=== PATIENT | female | born 1975 | race Two or more races ===

== ENCOUNTER 2024-02-29 07:48 | Outpatient (AMB) | payer BC, SELFPAY ==
[2024-02-29 08:04] VITALS: BP 121/74; PULSE 64; RESP 16; TEMP 36.3; O2SAT 96; BMI 24.7
--- NOTE | 2024-02-29 08:04 | PD.ORTHCLVIS ---
Vital signs 02/29/24 08:04 Height 1.68 m Height Method Stated Weight 70.023 kg Weight Measurement Method Standing Scale BMI 24.7 BP 121/74 Blood Pressure Source Automatic Cuff Blood Pressure Location Right Upper Arm Position Sitting Respiration 16 Pulse 64 Pulse Source Monitor Temp 97.3 F Temp Source Temporal Artery Scan Pulse Oximetry (%) 96 Oxygen Delivery Method Room Air Med/Allergies Allergies & Medications Allergies Penicillins Allergy (Severe, Verified 02/29/24 08:06) Hives Medication Reconciliation diclofenac potassium 50 mg tablet 50 mg PO QDAY 02/29/24 [History Confirmed 02/29/24] paroxetine HCl 30 mg tablet 30 mg PO QDAY 02/29/24 [History Confirmed 02/29/24] propranolol 20 mg tablet 20 mg PO BID 02/29/24 [History Confirmed 02/29/24] Subjective Visit Visit for: new patient and knee Immunization / Flu Flu Vaccine in the Last 12 Months: No Flu Vaccine Exclusion Criteria: Refused by Patient History of Present Illness Chief complaint: KNEE PAIN Date of injury / onset of symptoms: 2020 Personal History Occupation: RETIRED Red flag PMH: none Pain Pain level (0-10): 5 Pain duration: COMES AND GOES Pain location: inside (medial), outside (lateral), anterior and posterior Pain quality: other (specify) (INFLAMMATION ) Pain timing: increases with activity Associated signs & symptoms: weakness and stiffness Ambulatory data Ambulatory device: none Treatments Improvement with previous injections: No Improvement with PT: No Improvement with NSAIDS: n/a Review of Systems Review of Systems: All systems negative unless otherwise noted in HPI. Office Procedures GNS Level of Care Nursing/Assessment Patient Status: Established Patient Nursing Assessment/Reassesment: Medication Reconciliation, Update PMH in EMR and Vital Signs Coordination of Care: Complex Care and Chronic Disease 1-5, Education Complex Pt/Fam, Consent,records obtained, informed consent, Results/Orders obtained and Staff clarify orders Established Patient Charge Established Patient Point Assignment: 95 Established Patient Point Charge: EP Level 3 (80-115) Past Medical History Past Medical History Have you ever been diagnosed with any of the following: Neurological Problems Seizures: No Cardiology Problems Congestive Heart Failure: No Edema: No Cellulitis: No Varicose Veins: No Respiratory Problems Chronic Obstructive Pulmonary Disease (COPD): No Tuberculosis: No Pulmonary Embolism: No Sleep Apnea: No Smoking: No Smoking Exposure: No Stomache/Intestinal Problems Hepatitis: No Genital/Urinary Problems Renal Disease: No Reproductive Problems Previous Pregnancies: Yes (X3) Endocrine Problems Diabetes Mellitus Type 1: No Diabetes Mellitus Type 2: No Blood Problems Anemia: Yes (NO MED) Other Problems Hospitalization: No Shingles: No Falls: No Blood Transfusions: No Blood Transfusion Reaction: No Anesthesia Reactions: No Chemotherapy: No Radiation Therapy: No MRSA: No Chicken Pox: Yes Measles: No Mumps: No Cancer: No Surgical History Pacemaker: No
--- NOTE | 2024-04-17 14:07 | ORTHONT_ITS ---
Patient Name: DARIEL QUIÑONES : 1975 Subjective Subjective Brief History: left knee pain Narrative: Patient is a 48-year-old female with left knee pain and left knee arthritis. She has known osteoarthritis for 3 years. She just retired recently. The pain is bothering her and she just wants to get back to being more active. She is only tried diclofenac. She is not had any injections or formal physical therapy Exam Additional findings Additional findings: Patient is in no acute distress and is cooperative with the examination today. Breathing is nonlabored. Patient has a normal mood and affect. Bilateral extremities were evaluated and demonstrates sensation intact to light touch. Palpable pedal pulses are present. No significant edema is present. Bilateral hips were examined. The patient has no pain with log roll of the hips. Internal rotation to 30 degrees and external rotation to 30 degrees is painless. Negative FADIR. Right knee was examined today. The right knee is in reasonable alignment. Range of motion from 0-120 degrees. Knee is stable to varus and valgus as well as AP translation with <5mm. Patient has a negative McMurrays. There is no pain with patellofemoral compression and no crepitus noted. The knee is nontender to palpation. Left knee was examined today. The left knee is in [varus] alignment. Range of motion from [0-115] degrees. Knee is stable to varus and valgus as well as AP translation with <5mm. Patient has a [negative] McMurrays. There is [no] pain with patellofemoral compression and [no] crepitus noted. The knee is [tender] to palpation [medially]. Assessment & Plan Diagnosis (1) Arthritis of left knee: Status: Acute Assessment Additional comments: Patient is a 48-year-old female with left knee pain and left knee arthritis. The pain has been ongoing for at least 4 years. She Has recently retired. She has not had any injections. She reports diclofenac still works somewhat. We discussed a home exercise program to start with. We can try injections if the pain gets worse. I would like to get a tunnel view right now [facility]
== END 2024-02-29 08:39 | disposition home or self-care (01) ==
LOC: HODSRG 07:48
PROVIDERS: PCP Internal Medicine; Referring Provider Internal Medicine; Supervising Provider Orthopaedic Surgery Adult Reconstructive Orthopaedic Surgery; Visit Provider Orthopaedic Surgery Adult Reconstructive Orthopaedic Surgery
DX: M17.12 Unilateral primary osteoarthritis, left knee (principal); M25.562 Pain in left knee
CPT/HCPCS: 99213; G0463

== ENCOUNTER 2024-03-14 09:53 | Outpatient (AMB) | payer BC, SELFPAY ==
--- NOTE | 2024-03-14 10:38 | PD.ORTHCLVIS ---
Vital signs 03/14/24 10:45 Height 1.68 m Height Method Stated Weight 70.76 kg Weight Measurement Method Standing Scale BMI 25.0 BP 131/80 H Blood Pressure Source Automatic Cuff Blood Pressure Location Right Upper Arm Position Sitting Respiration 18 Pulse 68 Pulse Source Monitor Temp 98.2 F Temp Source Temporal Artery Scan Pulse Oximetry (%) 100 Oxygen Delivery Method Room Air Med/Allergies Allergies & Medications Allergies Penicillins Allergy (Severe, Verified 03/14/24 10:46) Hives Medication Reconciliation diclofenac potassium 50 mg tablet 50 mg PO QDAY 02/29/24 [History Confirmed 03/14/24] paroxetine HCl 30 mg tablet 30 mg PO QDAY 02/29/24 [History Confirmed 03/14/24] propranolol 20 mg tablet 20 mg PO BID 02/29/24 [History Confirmed 03/14/24] Subjective Visit Visit for: follow up visit Immunization / Flu Flu Vaccine in the Last 12 Months: No Flu Vaccine Exclusion Criteria: No Exclusion Criteria History of Present Illness Chief complaint: FOLLOW UP Patient is a 48-year-old female who previously saw me approximately a month ago. She has had a left knee pain for over 3 years. She has tried oral diclofenac but has not had any injections or physical therapy. She has been wearing only an elastic sleeve. The pain is bothering her and she has not had much treatment Pain Pain level (0-10): 6 Pain duration: CONSTANT Pain quality: sharp, dull and aching Ambulatory data Ambulatory device: none Treatments Improvement with previous injections: No Improvement with PT: No Improvement with NSAIDS: n/a Review of Systems Review of Systems: All systems negative unless otherwise noted in HPI. Exam Exam Patient is in no acute distress and is cooperative with the examination today. Breathing is nonlabored. Patient has a normal mood and affect. Bilateral extremities were evaluated and demonstrates sensation intact to light touch. Palpable pedal pulses are present. No significant edema is present. Bilateral hips were examined. The patient has no pain with log roll of the hips. Internal rotation to 30 degrees and external rotation to 30 degrees is painless. Negative FADIR. Right knee was examined today. The right knee is in reasonable alignment. Range of motion from 0-120 degrees. Knee is stable to varus and valgus as well as AP translation with <5mm. Patient has a negative McMurrays. There is no pain with patellofemoral compression and no crepitus noted. The knee is nontender to palpation. Left knee was examined today. The left knee is in [varus] alignment. Range of motion from [0-115] degrees. Knee is stable to varus and valgus as well as AP translation with <5mm. Patient has a [negative] McMurrays. There is [no] pain with patellofemoral compression and [no] crepitus noted. The knee is [tender] to palpation [medially]. X-rays demonstrate moderate joint space narrowing. This is dated 02/29/2024. These are weightbearing films Assessment and Plan Problem List (1) Arthritis of left knee: Status: Acute Plan: Patient is a 48-year-old female with left knee pain and left knee arthritis. The knee arthritis is of moderate severity on x-ray. We discussed nonoperative Options including injections, anti-inflammatories, and physical therapy. She would like to try an injection as well as physical therapy. We also set her up with a brace today. Plan Recommend knee cortisone injection as patient would like to proceed with conservative treatment at this time. The risks and benefits of the procedure were reviewed with the patient and patient gave verbal consent to continue with the procedure. Procedure: performed by Dr. Joseph Using sterile technique the left knee was thoroughly prepped with alcohol, and approximately 1 cc of Kenalog 40 mg/mL and 4 cc of 1% lidocaine was injected without resistance into the medial tibial femoral joint space. The patient tolerated the procedure. We will see the patient back in 1 to 2 months after her physical therapy Office Procedures GNS Level of Care Nursing/Assessment Patient Status: Established Patient Nursing Assessment/Reassesment: Medication Reconciliation, Update PMH in EMR and Vital Signs Coordination of Care: Complex Care and Chronic Disease 1-5, Education Complex Pt/Fam, Consent,records obtained, informed consent, Results/Orders obtained and Staff clarify orders Established Patient Charge Established Patient Point Assignment: 95 Established Patient Point Charge: EP Level 3 (80-115) Surgical Proc/IM SQ injection Major Surgical Procedure: Yes (KNEE INJECTION) Medication Given Medication Given Medication Given: Yes Documented Dose Given: 4 Route: Infiitration Medication Given Medication Given Medication Given: Yes Documented Dose Given: 1 Route: Infiitration Office Meds Xylocaine 10 mg/mL (1 %) injection solution Performing Provider: Pavel Joseph MD Performing Location: [facility] Administered by: Pavel Joseph MD on 03/14/24 11:54 Dose Route Admin Location Dispensed Lot Number Expiration Date [place] [employer] 20 mL Infiltration 20 mL [id number] [employer] triamcinolone acetonide 40 mg/mL suspension for injection Performing Provider: Pavel Joseph MD Performing Location: [facility] Administered by: Pavel Joseph MD on 03/14/24 11:54 Dose Route Admin Location Dispensed Lot Number Expiration Date [place] [employer] 40 mg intra-articular 1 mL [id number] [employer] Past Medical History Past Medical History Have you ever been diagnosed with any of the following: Neurological Problems Seizures: No Cardiology Problems Congestive Heart Failure: No Edema: No Cellulitis: No Varicose Veins: No Respiratory Problems Chronic Obstructive Pulmonary Disease (COPD): No Tuberculosis: No Pulmonary Embolism: No Sleep Apnea: No Smoking: No Smoking Exposure: No Stomache/Intestinal Problems Hepatitis: No Genital/Urinary Problems Renal Disease: No Reproductive Problems Previous Pregnancies: Yes (X3) Endocrine Problems Diabetes Mellitus Type 1: No Diabetes Mellitus Type 2: No Blood Problems Anemia: Yes (NO MED) Other Problems Hospitalization: No Shingles: No Falls: No Blood Transfusions: No Blood Transfusion Reaction: No Anesthesia Reactions: No Chemotherapy: No Radiation Therapy: No MRSA: No Chicken Pox: Yes Measles: No Mumps: No Cancer: No Surgical History Pacemaker: No
[2024-03-14 10:45] VITALS: BP 131/80; PULSE 68; RESP 18; TEMP 36.8; O2SAT 100; BMI 25.0
== END 2024-03-14 11:27 | disposition home or self-care (01) ==
LOC: HODSRG 09:53
PROVIDERS: PCP Internal Medicine; Referring Provider Internal Medicine; Supervising Provider Orthopaedic Surgery Adult Reconstructive Orthopaedic Surgery; Visit Provider Orthopaedic Surgery Adult Reconstructive Orthopaedic Surgery
DX: M17.12 Unilateral primary osteoarthritis, left knee (principal); M25.562 Pain in left knee
CPT/HCPCS: 20610; 99213; J3301; J3490; G0463

== ENCOUNTER 2024-04-13 21:25 | Emergency (ER) | payer BC, SELFPAY ==
[2024-04-13 21:26] VITALS: BMI 25.8
[2024-04-13 21:46] VITALS: BP 149/87; PULSE 71; RESP 20; TEMP 36.7; O2SAT 98
--- NOTE | 2024-04-13 21:59 | XR_ITS ---
Examination: PA lateral chest 2 views Technique: Upright PA lateral chest 2 views Exam date 9: April 13, 2024 1018 hrs. Comparison April 19, 2022 Indications: Coughing today. Findings: Normal heart size Lungs are clear. The osseous structures are intact Impression: No active disease
--- NOTE | 2024-04-13 22:00 | EDNOTE_ITS ---
ED SOB =RME/HPI General Chief Complaint: Shortness of Breath/Dyspnea Stated Complaint: COUGH, CONGESTION X1 WEEK, FEELS LIKE SHE HAS PNA Time Seen by Provider: 04/13/24 21:50 Arrival date/time: 04/13/24 21:25 This is a 48-year-old female that comes in with complaints of cough, congestion, runny nose, and shortness of breath for the last week. Patient states that she thinks she has pneumonia. Patient has a history of depression anxiety. Related Data Home Medications ?Medication ?Instructions ?Recorded ?Confirmed diclofenac potassium 50 mg tablet 50 mg PO QDAY 02/29/24 03/14/24 paroxetine HCl 30 mg tablet 30 mg PO QDAY 02/29/24 03/14/24 propranolol 20 mg tablet 20 mg PO BID 02/29/24 03/14/24 Previous Rx's ?Medication ?Instructions ?Recorded albuterol sulfate 90 mcg/actuation 1 puff inhalation QID PRN 04/13/24 aerosol inhaler shortness of breath or wheezing #8.5 grams ibuprofen 800 mg tablet 800 mg PO Q6H PRN pain #14 tabs 04/13/24 promethazine-DM 6.25 mg-15 mg/5 mL 5 ml PO Q6H PRN cough #120 mL 04/13/24 oral syrup Allergies Allergy/AdvReac Type Severity Reaction Status Date / Time Penicillins Allergy Severe Hives Verified 03/14/24 10:46 Review of Systems Review of Systems Systems Reviewed: All systems reviewed, normal except as documented ED Exam General General appearance: Present alert and in no apparent distress Head Head exam: Present atraumatic Eye Eye exam: Present normal appearance, PERRL and EOMI ENT ENT exam: Present normal exam, normal oropharynx and mucous membranes moist Neck Neck exam: Present normal inspection, full ROM and trachea midline Chest Chest inspection: Present normal inspection and symmetric chest wall rise Respiratory Respiratory exam: Present normal lung sounds bilaterally Cardiovascular Cardiovascular exam: Present regular rate and normal rhythm Abdominal Exam Abdominal exam: Present soft Extremities Exam Extremities exam: Present normal inspection and full ROM Back Exam Back exam: Present normal inspection and full ROM Neurological Exam Neurological exam: Present alert, oriented X3 and CN II-XII intact Psychiatric Psychiatric exam: Present normal affect and normal mood Skin Skin exam: Present warm, dry, intact and normal color Course Quality Measures none Orders Category Date Time Status Bedside COVID-19 Antigen Test NOW Care 04/13/24 21:59 Completed Bedside Influenza A&B Antigen Test NOW Care 04/13/24 21:59 Completed XR chest 2V Stat Exams 04/13/24 21:59 Completed Acetaminophen Tab [Tylenol ES Tab] Med 04/13/24 21:59 Discontinued 1,000 mg PO X1 ONE Ibuprofen Tab [Motrin Tab] Med 04/13/24 21:59 Discontinued 800 mg PO X1 ONE Promethazine/Dextromethorph [Phenergan Dm Syrup] Med 04/13/24 21:59 Discontinued 5 ml PO X1 ONE Vital Signs Vital signs: Vital Signs Temperature 98.0 F 04/13/24 21:46 Pulse Rate 71 04/13/24 21:46 Respiratory Rate 20 04/13/24 21:46 Blood Pressure 149/87 H 04/13/24 21:46 Pulse Oximetry (%) 98 04/13/24 21:46 Oxygen Delivery Method Room Air 04/13/24 21:46 Shortness of Breath / Dyspnea MDM Narrative MDM Narrative:: chest x ray: Findings: Normal heart size Lungs are clear. The osseous structures are intact Impression: No active disease Influenza A positive. Patient given Tylenol and ibuprofen. Because patient has had symptoms for more than a week Tamiflu not given. Follow-up with primary provider in 1 to 2 days. Come back to the emergency room symptoms change or worsen Patient data External records reviewed:: [facility] previous records Clinical information provided by:: patient Social determinants that could affect healthcare access:: none Patient has the following chronic illnesses:: None How is presenting disease/condition affected by chronic disease/condition?: no chronic disease Evaluation data The following diagnostics were reviewed and interpreted by me:: lab results and radiology exam(s) Lab and/or radiology exams considered but not ordered:: None Interpretation Summary: See note Medications / Prescriptions Medications or Prescriptions considered but not ordered:: None Medication administrations:: Medication Administration History Discontinued Medications Acetaminophen (Acetaminophen 500 Mg Tablet) 1,000 mg PO X1 ONE Stop: 04/13/24 22:00 Last Admin: 04/13/24 22:11 Dose: 1,000 mg Documented By: MANJINDER Ibuprofen (Ibuprofen Tab 400 Mg Tablet) 800 mg PO X1 ONE Stop: 04/13/24 22:00 Last Admin: 04/13/24 22:11 Dose: 800 mg Documented By: MANJINDER Promethazine HCl/Dextromethorphan (Promethazine/Dm Syrup 5 Ml Dose) 5 ml PO X1 ONE; Protocol Stop: 04/13/24 22:00 Last Admin: 04/13/24 22:11 Dose: 5 ml Documented By: MANJINDER See salvatore Consultations Consultation(s) initiated? (list below): No Diagnosis Shortness of Breath Differential Diagnosis: acute exacerbation of chronic obstructive airways disease, community acquired pneumonia and other (influenza ) Most likely diagnosis given after review of the tests above:: influenza Admission Indicated Admission indicated?: not indicated Admission Request Was there a request for admission?: No Disposition Plan Disposition Plan: Discharge Discharge Attestation Discharge Attestation: The patient and all family members were given an opportunity to ask questions and understood the discharge instructions. Discharge instructions specifically effects, indications for sooner follow up or return to the emergency department, and the expected course of current diagnosis. Patient condition: Stable Discharge Plan Plan Patient Disposition: HOME (Self Care) Patient condition on transfer: Stable Prescriptions/Referrals Prescriptions/Med Rec: New promethazine-DM 6.25-15 mg/5 mL syrup 5 ml PO Q6H PRN (Reason: cough) Qty: 120 0RF ibuprofen 800 mg tablet 800 mg PO Q6H PRN (Reason: pain) Qty: 14 0RF albuterol sulfate 90 mcg/actuation HFA aerosol inhaler 1 puff inhalation QID PRN (Reason: shortness of breath or wheezing) Qty: 8.5 0RF No Action diclofenac potassium 50 mg tablet 50 mg PO QDAY paroxetine HCl 30 mg tablet 30 mg PO QDAY propranolol 20 mg tablet 20 mg PO BID lidocaine HCl [Xylocaine] 10 mg/mL (1 %) solution 20 ml Infiltration X1 Qty: 20 0RF triamcinolone acetonide 40 mg/mL suspension 40 mg intra-articular X1 Qty: 1 0RF Problem List Clinical Impression: RAD (reactive airway disease), Cough, Influenza A Patient/Caregiver Discharge Instructions Discharge Activity: activity as tolerated Education Materials: ED Influenza (Adult), ED Inhaler Use Additional Instructions: Follow-up with primary provider in 1 to 2 days. Come back to the emergency room if symptoms change or worsen Print Language: Andorran Stand Alone Forms: Cynthia Award Info., Patient Portal Info Letter PA/SANITATION ENGINEER Supervising Physician PA/WINTER Supervising Physician: nano
[2024-04-13] MEDS: PROMETHAZINE/DM SYRUP 5 ML DOSE PO (22:11)
[2024-04-13] MEDS: IBUPROFEN TAB 400 MG TABLET 800 MG PO (22:11)
[2024-04-13] MEDS: ACETAMINOPHEN 500 MG TABLET 1000 MG PO (22:11)
== END 2024-04-13 23:21 | disposition home or self-care (01) ==
PROVIDERS: Emergency Provider Emergency Medicine; PCP Internal Medicine
DX: J45.909 Unspecified asthma, uncomplicated (principal); J10.1 Influenza due to other identified influenza virus with other respiratory manifestations
CPT/HCPCS: 71046; 87400; 87811; 99283; A9270

== ENCOUNTER → 2024-08-12 | Outpatient (CLI) | payer BC, SELFPAY ==
--- NOTE | 2024-08-12 13:30 | XR_ITS ---
Examination: Pelvic ultrasound, transabdominal, complete Technique: Transabdominal ultrasound of the pelvis performed using grayscale imaging Date and time of exam: August 12, 2024 1400 hours INDICATIONS: Pelvic pain beginning one year ago FINDINGS: Uterus 7.4 cm endometrial stripe 0.3 cm Uterine fundal mass 23 x 19 x 21 mm Right ovary obscured by bowel gas Left ovary 3.5 cm arterial flow 25 mm cyst IMPRESSION: Uterine fundal area of fibroid degeneration 23 x 19 x 21 mm
== END | disposition home or self-care (01) ==
PROVIDERS: PCP Internal Medicine; Referring Provider Specialist; Visit Provider Specialist
DX: D25.9 Leiomyoma of uterus, unspecified (principal)
CPT/HCPCS: 76856

== ENCOUNTER 2024-08-29 09:25 | Day surgery (SDC) | payer BC, SELFPAY ==
[2024-08-29] VITALS (9 sets, daily range): BP systolic 112–142; BP diastolic 64–93; PULSE 73–88; RESP 11–19; TEMP 36.2–36.6; O2SAT 97–100; BMI 24.7
[2024-08-29] MEDS: SODIUM CHLORIDE 0.9% 500 ML 500 ML 20 ML IV (11:08)
[2024-08-29] MEDS: DiphenhydrAMINE INJ 50 MG/ML VIAL 25 MG IVP (11:08)
[2024-08-29] MEDS: LIDOCAINE JELLY 2% (Urojet) 10 ML TUBE TOP (11:08)
[2024-08-29] MEDS: fentaNYL CIT INJ 50 mCg/ML AMP 2ML (ASD USE ONLY) IVP (11:18)
[2024-08-29] MEDS: MIDAZOLAM INJ 1 MG/ML VIAL 2 ML (ASD USE ONLY) 2 MG IVP (11:18)
== END 2024-08-29 12:17 | disposition home or self-care (01) ==
PROVIDERS: PCP Internal Medicine; Referring Provider Specialist; Visit Provider Specialist
PROC: 0DBE8ZX Excision of Large Intestine, Via Natural or Artificial Opening Endoscopic, Diagnostic (ICD-10-PCS; CPT 45380; principal; 2024-08-29 11:15)
DX: K63.89 Other specified diseases of intestine (principal); K62.89 Other specified diseases of anus and rectum; K64.9 Unspecified hemorrhoids; K57.30 Diverticulosis of large intestine without perforation or abscess without bleeding; K62.1 Rectal polyp
CPT/HCPCS: 45380; J1200; J2250; J3010; J7040

== ENCOUNTER → 2024-11-28 | Outpatient (CLI) | payer BC, SELFPAY ==
[2024-11-28 09:52] LABS: Collection Type, Urine Clean Catch
[2024-11-28 10:31] LABS: Basophils # (Auto) 0.0 Thou/mm3 (0.0-0.2); Basophils % (Auto) 1 % (0-2.5); Eosinophils # (Auto) 0.1 Thou/mm3 (0.0-0.5); Eosinophils % (Auto) 3 % (0-10); Hematocrit 37.6 % (36.0-46.0); Hemoglobin 12.9 g/dL (12.0-16.0); Immature Granulocytes Auto 0.00 Thou/mm3 (0.00-0.00); Lymphocytes # (Auto) 2.0 Thou/mm3 (1.0-4.8); Lymphocytes % (Auto) 43 % (10-50); Mean Corpuscular HGB Conc 34.3 g/dl (31.0-37.0); Mean Corpuscular Hemoglobin 30.1 pg (25.0-35.0); Mean Corpuscular Volume 88 fL (80-100); Monocytes # (Auto) 0.3 Thou/mm3 (0.0-0.8); Monocytes % (Auto) 7 % (0-12); Neutrophils # (Auto) 2.2 Thou/mm3 (1.8-7.7); Neutrophils % (Auto) 47 % (37-80); Nucleated Red Blood Cell # 0.00 Thou/mm3 (0.00-0.00); Nucleated Red Blood Cell % 0 /100 WBC (0); Platelet Count 317 Thou/mm3 (140-440); RDW Standard Deviation 42.1 fL (36.4-46.3); Red Blood Count 4.28 Miln/mm3 (4.00-5.20); White Blood Count 4.7 Thou/mm3 (3.6-11.0)
[2024-11-28 10:52] LABS: Bilirubin,Urine Negative (Negative); Blood,Urine Negative (Negative); Clarity,Urine Clear (Clear/Hazy); Color,Urine Yellow (Lt Yel-Yel); Glucose, Urine Negative (Negative); Ketones,Urine Negative (Negative); Leukocyte Esterase,Urine Positive (Negative); Nitrite,Urine Negative (Negative); PH,Urine 6.0 (5.0-7.0); Protein,Urine Trace (Neg - Trace); RBC,Urine 2 /hpf (0-3); Specific Gravity,Urine 1.028 (1.001-1.035); Squamous Epithelial Cell,Urine 6 /hpf (0-5); Urobilinogen,Urine Negative mg/dL (0.0-1.0); WBC,Urine 5 /hpf (0-5)
[2024-11-28 11:04] LABS: Vitamin B12 457 pg/mL (211-911); Vitamin D 25 Hydroxy Total 30.3 ng/mL (7.3-40.2)
[2024-11-28 11:14] LABS: Alanine Aminotransferase 18 U/L (10-49); Albumin, Serum 4.5 gm/dL (3.5-5.0); Albumin/Globulin Ratio 1.6 (1.2-2.2); Alkaline Phosphatase 82 U/L (46-116); Anion Gap 10 (7-16); Aspartate Amino Transferase 14 U/L (0-34); BUN/Creatinine Ratio 11 Ratio (12-20); Bilirubin,Total 0.5 mg/dL (0.3-1.2); Blood Urea Nitrogen 11 mg/dL (9-23); Calcium 10.0 mg/dL (8.3-10.6); Calcium (Corrected) 10.0 mg/dL (8.5-10.1); Carbon Dioxide 28.3 mMol/L (20.0-31.0); Chloride 104 mMol/L (98-107); Creatinine (Component) 1.0 mg/dL (0.6-1.3); Globulin 2.9 gm/dL (2.3-3.5); Glucose 90 mg/dL (74-106); Osmolality,Calculated 282 (275-295); Potassium 3.9 mMol/L (3.4-5.1); Sodium 142 mMol/L (136-145); Thyroid Stimulating Hormone 1.62 uIU/mL (0.55-4.78); Total Protein 7.4 gm/dL (5.7-8.2); eGFR > 60 See Note
[2024-11-28 11:46] LABS: Cardiac Risk Estimate 3.5 RATIO (3.7-5.6); Cholesterol 181 mg/dL (132-200); HDL Cholesterol 52 mg/dL (40-60); LDL Cholesterol,Calculated 95 mg/dL (0-130); Triglycerides 169 mg/dL (30-150)
== END | disposition home or self-care (01) ==
LOC: COPL 09:10
PROVIDERS: PCP Internal Medicine; Referring Provider Internal Medicine; Visit Provider Internal Medicine
DX: Z00.00 Encounter for general adult medical examination without abnormal findings (principal)
CPT/HCPCS: 36415; 80053; 80061; 81001; 82306; 82607; 84443; 85025